=== PATIENT | female | born 1940 | race Caucasian/White ===

== ENCOUNTER 2017-06-23 02:38 | Inpatient (IN) | payer MEDICARE ==
[2017-06-29] MEDS ORDERED: PEPCID DPS20 MG PO (10:34)
[2017-06-29] MEDS ORDERED: ASA CHILDREN'S81 MG PO (10:34)
[2017-06-29] MEDS ORDERED: COUMADIN5 MG PO (10:35)
[2017-06-29] MEDS ORDERED: TOPROL XL100 MG PO (10:35)
[2017-06-29] MEDS ORDERED: B-COMPLEX WITH1 EAC2 PO (10:35)
[2017-06-29] MEDS ORDERED: AMBIEN DPS5 MG PO (10:35)
[2017-06-29] MEDS ORDERED: NORVASC DPS10 MG PO (10:35)
[2017-06-29] MEDS ORDERED: LEVAQUIN DPS750 MG PO (10:36)
== END 2017-06-28 19:56 | disposition home health service (06) | DRG 189 ==
DX: J96.01 Acute respiratory failure with hypoxia (principal); J18.9 Pneumonia, unspecified organism; N18.6 End stage renal disease; I12.0 Hypertensive chronic kidney disease with stage 5 chronic kidney disease or end stage renal disease; J44.0 Chronic obstructive pulmonary disease with (acute) lower respiratory infection; E11.22 Type 2 diabetes mellitus with diabetic chronic kidney disease; I48.91 Unspecified atrial fibrillation; E11.42 Type 2 diabetes mellitus with diabetic polyneuropathy; E87.1 Hypo-osmolality and hyponatremia; D63.1 Anemia in chronic kidney disease; I87.2 Venous insufficiency (chronic) (peripheral); Z99.2 Dependence on renal dialysis; Z86.718 Personal history of other venous thrombosis and embolism; Z85.43 Personal history of malignant neoplasm of ovary; Z79.82 Long term (current) use of aspirin